=== PATIENT | female | born 1995 | race Caucasian/White ===

== ENCOUNTER 2016-11-07 18:13 | Emergency (ER) | payer OTHER, MEDICAID ==
--- NOTE | 2016-11-07 18:32 | EDM.PDOC ---
ED HPI ENT - General Chief Complaint: ENT Problem Stated Complaint: pt states at home with sore throat started yesterday feeling bad all day felt like couldnt breath due to sorethroat and swollen nodes came to ER states feels bad subj fever neg trouble swallowing holding salava or eating no medical problems Time Seen by Provider: 11/07/16 18:26 Source of Information: Reports: Patient History Limitations: Reports: No limitations - History of Present Illness Symptom Onset Date: 11/06/16 Symptom Onset Time: 18:00 Severity: moderate (7-8/10) Quality: Reports: Burning, Sharp Improves with: Reports: None Worsens with: Reports: None Associated Symptoms: Reports: shortness of breath, fever/chills. 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 [No Known Home Meds] 11/07/16 [History] Past Medical History - Past Health History Medical/Surgical History: Denies Medical/Surgical History HEENT History: Reports: None Cardiovascular History: Reports: None Respiratory History: Reports: None. Denies: Asthma, Bronchitis, recurrent Gastrointestinal History: Reports: None Genitourinary History: Reports: None PERSONAL COUNSELOR History: Reports: None Musculoskeletal History: Reports: None Neurological History: Reports: None Psychiatric History: Reports: None Endocrine/Metabolic History: Reports: None Immunologic History: Reports: None - Past Surgical History GI Surgical History: Reports: Cholecystectomy, Other (see below) (rhonda 3wks ago no complications since) Social & Family History - Family History Family Medical History: Noncontributory - Tobacco Use Smoking Status *Q: Never Smoker Years of Tobacco use: 2 Packs/Tins Daily: 1 - Recreational Drug Use Recreational Drug Use: Yes Drug Use in Last 12 Months: Yes Recreational Drug Type: Reports: Marijuana/Hashish ED ROS ENT - Review of Systems Review Of Systems: See Below Constitutional: Reports: fever, chills, weakness, fatigue. Denies: night sweats , diaphoresis HEENT: Reports: Throat pain, Throat swelling. Denies: Dental pain, Sinus problem Respiratory: Reports: shortness of breath, wheezing, cough Cardiovascular: Denies: Chest pain, Dyspnea on exertion, Lightheadedness, Palpitations GI/Abdominal: Reports: No symptoms : Reports: no symptoms Musculoskeletal: Reports: no symptoms Skin: Reports: no symptoms Neurological: Reports: no symptoms Psychiatric: Reports: No symptoms Hematologic/Lymphatic: Reports: no symptoms Immunologic: Reports: no symptoms ED EXAM, ENT - Physical Exam Exam: See Below Exam Limited By: No limitations General Appearance: alert, WD/WN, no apparent distress, anxious Eye Exam: bilateral eye: EOMI, PERRL Ears: normal external exam, normal canal, hearing grossly normal, normal TMs. No: mastoid tenderness Nose: normal inspection, normal mucousa, no blood. No: nasal discharge, nasal swelling Mouth/Throat: Normal inspection, Normal gums, Normal lips, Normal oropharynx, Normal teeth, Pharyngeal erythema, Tonsillar erythema, Tonsillar exudates, Tonsillar swelling, Other. No: Drooling (blat tonsils +1 creptic mild exudate inline uvula patent airway neg adenopathy ), Dry mucous membrane, Hoarse voice, Lip swelling, Muffled voice, Throat swelling, Tongue swelling, Trismus, Uvular deviation Head: atraumatic, normocephalic Neck: normal inspection, supple, non-tender, full range of motion. No: limited range of motion, lymphadenopathy (L) Respiratory/Chest: no respiratory distress, lungs clear, normal breath sounds, no accessory muscle use, chest non-tender. No: respiratory distress, decreased breath sounds Cardiovascular: regular rate, rhythm, no edema, no gallop, no JVD, no murmur, no rub GI/Abdominal: normal bowel sounds, soft, non tender, no organomegaly, no distention. No: distended, guarding, rebound, tender Back: full range of motion Extremities: normal inspection, normal range of motion, non-tender Neurological: alert, oriented, CN II-XII intact, normal cognition, normal gait, normal reflexes, no motor/sensory deficits Psychiatric: normal affect, normal mood Skin: Warm, Dry, Intact, Normal color, No rash Lymphatic: no adenopathy Course - Vital Signs Text/Narrative:: rapid strep neg will tx on centor criteria of 2 does not recommend emperic abx throat culture pending rechecked pt HR 92 sat 99% RA laughing with while lying on bed normal speech swallowing ok Last Recorded V/S: Last Vital Signs Temp 37.4 C 11/07/16 18:20 Pulse 120 H 11/07/16 18:20 Resp 16 11/07/16 18:20 BP 104/64 11/07/16 18:20 Pulse Ox 99 11/07/16 18:20 - Orders/Labs/Meds Orders: Active Orders 24 hr Category Date Time Status CULTURE STREP A CONFIRMATION [RM] Urgent Lab 11/07/16 18:30 Received CULTURE THROAT [RM] Stat Lab 11/07/16 18:54 Uncollected Labs: Laboratory Tests 11/07/16 Range/Units 18:30 POC Group A Strep Rpd Negative (NEGATIVE) Meds: Medications Discontinued Medications Generic Name Dose Route Start Last Admin Trade Name Meghan PRN Reason Stop Dose Admin Dexamethasone 8 mg 11/07/16 18:54 11/07/16 19:01 Dexamethasone IM 11/07/16 18:55 8 mg ONETIME ONE Administration Departure - Departure Time of Disposition: 19:05 Disposition: Home, Self-Care 01 Condition: good Clinical Impression: Pharyngitis Instructions: Pharyngitis Referrals: Virgen Murguia [facility] [Primary Care Provider] - Forms: ED Department Discharge Additional Instructions: return to the ER if anything gets worse or changes you cant breath ,swallow hold your spit saliva or throat swelling or feels like it getting tight or closing follow up with your primary provider in 24 -48 hrs pt and understand ok with TX and follow up - My Orders Last 24 Hours: My Active Orders 11/07/16 18:30 CULTURE STREP A CONFIRMATION [RM] Urgent 11/07/16 18:54 CULTURE THROAT [RM] Stat - Assessment/Plan Last 24 Hours: My Active Orders 11/07/16 18:30 CULTURE STREP A CONFIRMATION [RM] Urgent 11/07/16 18:54 CULTURE THROAT [RM] Stat
[2016-11-07 18:50] VITALS: BP 104/64
[2016-11-07] MEDS ORDERED: Dexamethasone 4 MG/ML SDV IM ONE (18:54)
[2016-11-07 18:55] LABS: STREP A CONTROL ACCEPTABLE (ACCEPTABLE); STREP A LOT 6164248; STREP A POC FOR ED NEGATIVE (NEGATIVE)
== END 2016-11-07 19:16 | disposition home or self-care (01) ==
LOC: VM.ED 18:13
DX: J02.9 Acute pharyngitis, unspecified (principal); Z88.6 Allergy status to analgesic agent
CPT/HCPCS: 87081; 87880; 96372; 99283; J1100

== ENCOUNTER 2017-07-11 20:12 | Emergency (ER) | payer OTHER, MEDICAID ==
[2017-07-11] MEDS ORDERED: Sodium Chloride 0.9% 10 ML Syringe FLUSH PRN (20:22)
[2017-07-11] MEDS ORDERED: Sodium Chloride 0.9% 1,000 ML IV ONE (20:22)
[2017-07-11] MEDS ORDERED: Ondansetron 4 MG/2 ML SDV IVPUSH ONE (20:23)
--- NOTE | 2017-07-11 20:38 | EDM.PDOC ---
ED HPI GENERAL MEDICAL PROBLEM - General Chief Complaint: Gastrointestinal Problem Stated Complaint: Nausea and Vomiting; SOB; Time Seen by Provider: 07/11/17 20:12 Source of Information: Reports: Patient, Family, RN, RN Notes Reviewed History Limitations: Reports: No Limitations - History of Present Illness INITIAL COMMENTS - FREE TEXT/NARRATIVE: Patient presents the emergency room at [facility] complaining of nausea vomiting and persistent coughing for the past couple of days. The patient states that she is 30 weeks . The patient states that she is being seen by a provider at [facility]. The patient states that she has vomited several times over the past couple of days. The patient states she is not sure if her coughing is causing the vomiting. The patient states she has not been able to keep any fluids down due to her vomiting. The patient denies any diarrhea. The patient denies any current cigarette smoking, however she did quit smoking about 4 years ago. The patient denies any chest pain. The patient states that she has some abdominal discomfort from the vomiting. The patient is not sure if she had any fevers or chills. The patient denies any focal neurological deficits. Otherwise no other concerns. Onset: Gradual Onset Date: 07/09/17 - Related Data Allergies Allergy/AdvReac Type Severity Reaction Status Date / Time codeine Allergy Hives Verified 11/07/16 18:46 Home Meds: Home Meds . [No Known Home Meds] 11/07/16 [History] Past Medical History HEENT History: Reports: None Cardiovascular History: Reports: None Respiratory History: Reports: None. Denies: Asthma, Bronchitis, Recurrent Gastrointestinal History: Reports: None Genitourinary History: Reports: None RECORDS OFFICER History: Reports: None Other OB/BYN History: vaginal delivery one week ago Musculoskeletal History: Reports: None Neurological History: Reports: None Psychiatric History: Reports: None Endocrine/Metabolic History: Reports: None Immunologic History: Reports: None - Past Surgical History GI Surgical History: Reports: Cholecystectomy, Other (See Below) Social & Family History - Family History Family Medical History: Noncontributory - Tobacco Use Smoking Status *Q: Former Smoker Years of Tobacco use: 2 Packs/Tins Daily: 1 Used Tobacco, but Quit: Yes Smoking Cessation Information Provided To Patient: Patient Refused Second Hand Smoke Exposure: Yes - Recreational Drug Use Recreational Drug Use: Yes Drug Use in Last 12 Months: Yes Recreational Drug Type: Reports: Marijuana/Hashish - Sexual History Sexual History: Reports: Sexually Active, Single Partner ED ROS GENERAL - Review of Systems Review Of Systems: See Below Constitutional: Reports: Weakness, Decreased Appetite. Denies: Fever, Chills HEENT: Reports: No Symptoms Respiratory: Reports: Shortness of Breath, Wheezing, Pleuritic Chest Pain, Cough. Denies: Sputum Cardiovascular: Denies: Chest Pain, Palpitations GI/Abdominal: Reports: Abdominal Pain, Decreased Appetite, Nausea, Vomiting. Denies: Diarrhea Skin: Reports: No Symptoms Neurological: Reports: No Symptoms. Denies: Headache, Numbness, Paresthesia, Tingling ED EXAM, GI/ABD - Physical Exam Exam: See Below Exam Limited By: No Limitations General Appearance: Alert, No Apparent Distress Neck: Supple Respiratory/Chest: No Respiratory Distress, Decreased Breath Sounds, Crackles, Rhonchi, Wheezing Cardiovascular: Normal Peripheral Pulses, Regular Rate, Rhythm GI/Abdominal Exam: Soft, Non-Tender, Abnormal Bowel Sounds (Hypoactive) Neurological: Alert, Oriented Skin Exam: Warm, Dry, Intact, Normal Color, No Rash Course - Orders/Labs/Meds Meds: Medications Discontinued Medications Generic Name Dose Route Start Last Admin Trade Name Freq PRN Reason Stop Dose Admin Sodium Chloride 1,000 mls @ 999 mls/hr 07/11/17 20:22 Normal Saline IV 07/11/17 21:22 ONETIME ONE Ondansetron HCl 4 mg 07/11/17 20:23 Zofran IVPUSH 07/11/17 20:24 ONETIME ONE Sodium Chloride 10 ml 07/11/17 20:22 Saline Flush FLUSH ASDIRECTED PRN Keep Vein Open Departure - Departure Time of Disposition: 20:25 Disposition: Eloped 07 Condition: Fair Clinical Impression: At risk for elopement, Wheezing, Exposure to influenza, Cough in adult - Discharge Information - Problem List Review Problem List Initiated/Reviewed/Updated: Yes - Assessment/Plan Plan: 20:12 Plan of care was discussed with the patient and she agreed. We will check a CBC and BMP along with an influenza screen. The patient will be rehydrated with IV fluids. I will also give the patient Zofran IV for the nausea. I would like to check a chest x-ray however given the it is not indicated. 20:25 I was notified by the nurse around 8:25 PM that the patient had eloped. It is unknown to this provider Y the patient eloped. According to the nurse the patient got upset her unknown reasons and stated that she would take herself to [place]. I did not have a chance to discuss with the patient the severity of my assessment findings. I am very concerned with this patient given her respiratory status, exposure to influenza, and high risk . I was unable to discuss this with the patient as she eloped without my knowledge.
[2017-07-11 23:49] VITALS: BP 114/64
== END 2017-07-11 20:25 | disposition left against medical advice (07) ==
LOC: VM.ED 20:12
DX: O99.89 Other specified diseases and conditions complicating pregnancy, childbirth and the puerperium (principal); R06.2 Wheezing; R05 Cough; R11.2 Nausea with vomiting, unspecified; Z20.828 Contact with and (suspected) exposure to other viral communicable diseases; Z88.5 Allergy status to narcotic agent; Z87.891 Personal history of nicotine dependence; Z90.49 Acquired absence of other specified parts of digestive tract; Z3A.30 30 weeks gestation of pregnancy
CPT/HCPCS: 99283

== ENCOUNTER 2018-12-23 12:16 | Emergency (ER) | payer MEDICAID, OTHER ==
--- NOTE | 2018-12-23 12:35 | EDM.PDOC ---
ED HPI GENERAL MEDICAL PROBLEM - General Chief Complaint: General Stated Complaint: SEVERE PAIN IN HEAD-TOOTHACHE Time Seen by Provider: 12/23/18 12:29 Source of Information: Reports: Patient History Limitations: Reports: No Limitations - History of Present Illness INITIAL COMMENTS - FREE TEXT/NARRATIVE: Patient arrives with complaints of left sided jaw pain, wisdom teeth pain to the left side. Complaints of abdominal cramping and cough as well. No sputum production. Cough started last night. Onset: Gradual Duration: Getting Worse Location: Reports: Face Worsens with: Reports: Eating Associated Symptoms: Reports: Cough - Related Data Allergies Allergy/AdvReac Type Severity Reaction Status Date / Time codeine Allergy Hives Verified 12/23/18 12:32 Home Meds: Home Meds . [No Known Home Meds] 12/23/18 [History] Past Medical History - Past Health History Medical/Surgical History: Denies Medical/Surgical History HEENT History: Reports: None Cardiovascular History: Reports: None Respiratory History: Reports: None. Denies: Asthma, Bronchitis, Recurrent Gastrointestinal History: Reports: None Genitourinary History: Reports: None PIECER History: Reports: None Other PIECER History: vaginal delivery one week ago Musculoskeletal History: Reports: None Neurological History: Reports: None Psychiatric History: Reports: None Endocrine/Metabolic History: Reports: None Immunologic History: Reports: None - Past Surgical History GI Surgical History: Reports: Cholecystectomy, Other (See Below) Social & Family History - Family History Family Medical History: Noncontributory - Sexual History Sexual History: Reports: Sexually Active, Single Partner ED ROS GENERAL - Review of Systems Review Of Systems: See Below Constitutional: Reports: Fever HEENT: Reports: Dental Pain Respiratory: Reports: Cough Cardiovascular: Reports: No Symptoms Endocrine: Reports: No Symptoms GI/Abdominal: Reports: Other (abdominal cramping, has menstrual cycle) : Reports: No Symptoms Musculoskeletal: Reports: No Symptoms Skin: Reports: No Symptoms Neurological: Reports: No Symptoms Psychiatric: Reports: No Symptoms Hematologic/Lymphatic: Reports: No Symptoms Immunologic: Reports: No Symptoms ED EXAM, GENERAL - Physical Exam Exam: See Below Free Text/Narrative:: Upon inspection and palpation, no left sided abscess identified to upper or lower jaw. Cracked upper back molar on left side. Exam Limited By: No Limitations General Appearance: Alert, WD/WN, Mild Distress Eye Exam: Bilateral Eye: EOMI, Normal Inspection, PERRL Ears: Normal TMs Ear Exam: Bilateral Ear: Auricle Normal, Canal Normal, TM normal Nose: Normal Inspection, Normal Mucosa, No Blood Throat/Mouth: Normal Inspection, Normal Lips, Normal Teeth, Normal Gums, Normal Oropharynx, Normal Voice, No Airway Compromise Head: Atraumatic, Normocephalic. No: Facial Swelling, Facial Tenderness, Sinus Tenderness Neck: Normal Inspection, Supple, Non-Tender, Full Range of Motion Respiratory/Chest: No Respiratory Distress, Lungs Clear, Normal Breath Sounds, No Accessory Muscle Use, Chest Non-Tender Cardiovascular: Normal Peripheral Pulses, Regular Rate, Rhythm, No Edema, No Gallop, No JVD, No Murmur, No Rub GI/Abdominal: Normal Bowel Sounds, Soft, No Organomegaly, No Distention, No Abnormal Bruit, No Mass, Tender Back Exam: No: CVA Tenderness (L), CVA Tenderness (R) Extremities: Normal Inspection, Normal Range of Motion, Non-Tender, Normal Capillary Refill, No Pedal Edema Neurological: Alert, Oriented, CN II-XII Intact, Normal Cognition, Normal Gait, Normal Reflexes, No Motor/Sensory Deficits Psychiatric: Normal Affect, Normal Mood Skin Exam: Warm, Dry, Intact, Normal Color, No Rash Lymphatic: No Adenopathy Departure - Departure Time of Disposition: 14:28 Disposition: Home, Self-Care 01 Condition: Good Clinical Impression: Influenza A, Tooth abscess - Discharge Information *PRESCRIPTION DRUG MONITORING PROGRAM REVIEWED*: Yes *COPY OF PRESCRIPTION DRUG MONITORING REPORT IN PATIENT JA: Yes Instructions: Amoxicillin; Clavulanic Acid tablets, Probiotics, Influenza, Adult, [id number] Forms: ED Department Discharge Additional Instructions: Plan 1. Follow up with your primary doctor and dentist. 2. Take the antibiotic augmentin twice daily for 7 days, as well as the tamiflu twiced daily for 5 days 3. Drink plenty of water to stay hydrated 4. Eat 1-2 yogurts daily or take a probiotic while on the antibiotic to prevent a bacterial infection of the intestine due to antibiotic use. 5. Please call with any questions or concerns. - Problem List & Annotations (1) Influenza A SNOMED Code(s): 190832025 Code(s): J10.1 - FLU DUE TO OTH IDENT INFLUENZA VIRUS W OTH RESP MANIFEST Status: Acute Priority: Medium Current Visit: Yes (2) Tooth abscess SNOMED Code(s): 760100861 Code(s): K04.7 - PERIAPICAL ABSCESS WITHOUT SINUS Status: Acute Priority : Low Current Visit: Yes - Problem List Review Problem List Initiated/Reviewed/Updated: Yes - Assessment/Plan Assessment:: abscess of wisdom teeth left side influenza A Plan: Plan 1. Follow up with your primary doctor and dentist. 2. Take the antibiotic augmentin twice daily for 7 days, as well as the tamiflu twiced daily for 5 days 3. Drink plenty of water to stay hydrated 4. Eat 1-2 yogurts daily or take a probiotic while on the antibiotic to prevent a bacterial infection of the intestine due to antibiotic use. 5. Please call with any questions or concerns.
[2018-12-23 12:38] VITALS: BP 148/89
[2018-12-23 13:13] LABS: CHLORIDE,CL 104 mmol/L (98-107); SODIUM,NA 142 mmol/L (136-145)
[2018-12-23 13:16] LABS: ANION GAP 15.2 mmol/L (10-20)
--- NOTE | 2018-12-23 13:16 | CR ---
[id number] RAD/RAD Chest PA or AP 1V EXAM: RAD Chest PA or AP 1V INDICATION: COUGH, FEVER. COMPARISON: None. DISCUSSION: Cardiomediastinal silhouette is normal in size and contour. No infiltrate, effusion, pneumothorax, or edema. Metallic artifact overlying both hemithoraces is likely external to the patient. IMPRESSION: No significant cardiopulmonary abnormality. Arnold Mccarty DO 12/23/18 1334 Thank you for allowing us to participate in the care of your patient.
[2018-12-23] MEDS: Amoxicillin/Clavulanate K 875-125 MG Tab PO ONE (13:37)
[2018-12-23] MEDS: Codeine/Promethazine 10-6.25 MG/5 ML Syrup 5 ML UD Cup PO ONE (13:38)
[2018-12-23] MEDS: Acetaminophen/HYDROcodone 325-10 MG Tab PO ONE (13:38)
[2018-12-23] MEDS: Ketorolac 30 MG/ML SDV IM ONE (13:39)
[2018-12-23] MEDS: Potassium Chloride 20 MEQ Tab.ER PO ONE (14:20)
== END 2018-12-23 14:40 | disposition home or self-care (01) ==
LOC: VM.ED 12:16
DX: J10.1 Influenza due to other identified influenza virus with other respiratory manifestations (principal); K04.7 Periapical abscess without sinus; Z88.5 Allergy status to narcotic agent; Z90.49 Acquired absence of other specified parts of digestive tract
CPT/HCPCS: 36415; 71045; 80053; 81001; 85025; 87804; 87804-59; 96372; 99283-GF; 99284-25; A9270-GY; J1885

== ENCOUNTER 2019-04-13 15:16 | Emergency (ER) | payer BC, OTHER ==
[2019-04-13] MEDS ORDERED: Sodium Chloride 0.9% 1,000 ML IV ONE (15:42)
--- NOTE | 2019-04-13 15:43 | EDM.PDOC ---
ED HPI GENERAL MEDICAL PROBLEM - General Stated Complaint: PT PASSED OUT AT STORE Time Seen by Provider: 04/13/19 15:37 Source of Information: Reports: Patient, EMS, Family History Limitations: Reports: No Limitations - History of Present Illness INITIAL COMMENTS - FREE TEXT/NARRATIVE: The patient has not established any doctor. She has been taking medications however she also admits to doing recreational marijuana. She was unable to give us a urine specimen to look for infection. She came in by EMS. We did give her some fluids she did feel like she was dehydrated. We also did lab work to make sure she wasn't anemic. The significant other was supportive. We did do heart tones and they were 150+. This is not her first . She did have a slight headache. No abrasion to the back of the head. I told her that a quantitative hCG will be drawn and that the results will be back on Sunday as far as establishing a baseline in case another value is needed. Onset: Sudden Duration: Improving Severity: Moderate Improves with: Reports: Eating Associated Symptoms: Reports: Headaches, Nausea/Vomiting, Weakness Posterior Head Pain Score (Numeric/FACES): 5 - Related Data Allergies Allergy/AdvReac Type Severity Reaction Status Date / Time codeine Allergy Hives Verified 04/13/19 16:09 Home Meds: Home Meds Pnv No.95/Ferrous Fum/Folic AC [ Caplet] 1 tab DAILY 04/13/19 [History] Past Medical History - Past Health History Medical/Surgical History: Denies Medical/Surgical History HEENT History: Reports: None Cardiovascular History: Reports: None Respiratory History: Reports: None. 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: Reports: None Other BOARD LINER OPERATOR History: vaginal delivery one week ago Musculoskeletal History: Reports: None Neurological History: Reports: None Psychiatric History: Reports: None Endocrine/Metabolic History: Reports: None Immunologic History: Reports: None - Past Surgical History GI Surgical History: Reports: Cholecystectomy, Other (See Below) Social & Family History - Family History Family Medical History: Noncontributory - Sexual History Sexual History: Reports: Sexually Active, Single Partner ED ROS GENERAL - Review of Systems Review Of Systems: ROS reveals no pertinent complaints other than HPI. - Physical Exam Exam: See Below Exam Limited By: No Limitations General Appearance: Alert, Mild Distress Head Exam: Atraumatic, Normocephalic, Other (Her headache is about the occipital area.) Respiratory/Chest: No Respiratory Distress, Lungs Clear, Normal Breath Sounds, No Accessory Muscle Use, Chest Non-Tender Cardiovascular: Normal Peripheral Pulses, Regular Rate, Rhythm, No Edema, No Gallop, No JVD, No Murmur, No Rub Extremities: Normal Inspection, Normal Range of Motion, Non-Tender, No Pedal Edema, Normal Capillary Refill Psychiatric: Normal Affect, Normal Mood Skin Exam: Warm, Dry Course - Vital Signs Last Recorded V/S: Last Vital Signs Temp 36.6 C 04/13/19 15:16 Pulse 76 04/13/19 15:16 Resp 16 04/13/19 15:16 BP 98/53 L 04/13/19 15:16 Pulse Ox 97 04/13/19 15:16 - Orders/Labs/Meds Orders: Active Orders 24 hr Category Date Time Status [facility] QUANTITATIVE [REF] Stat Lab 04/13/19 16:00 Received Labs: Laboratory Tests 04/13/19 04/13/19 Range/Units 16:00 16:00 WBC 9.2 (4.0-10.0) x10^3/uL RBC 3.97 L (4.00-5.50) x10^6/uL Hgb 12.7 (12.0-16.0) g/dL Hct 37.0 (33.0-47.0) % MCV 93.2 H (78.0-93.0) fL MCH 32.0 (26.0-32.0) pg MCHC 34.3 (32.0-36.0) g/dL RDW Coeff of Katelyn 12.3 (10.0-15.0) % Plt Count 122 L (130-400) x10^3/uL Neut % (Auto) 74.4 (50.0-80.0) % Lymph % (Auto) 12.5 L (25.0-50.0) % [place] % (Auto) 7.9 (2.0-11.0) % Eos % (Auto) 5.0 H (0.0-4.0) % Baso % (Auto) 0.2 (0.2-1.2) % Sodium 141 (136-145) mmol/L Potassium 3.8 (3.5-5.1) mmol/L Chloride 108 H (98-107) mmol/L Carbon Dioxide 26 (21-32) mmol/L Anion Gap 10.8 (10-20) mmol/L BUN 6 L (7-18) mg/dL Creatinine 0.7 (0.55-1.02) mg/dL Est Cr Clr Drug Dosing TNP Estimated GFR (MDRD) > 60 Glucose 91 (74-106) mg/dL Calcium 8.4 L (8.5-10.1) mg/dL Corrected Calcium 9.20 (8.5-10.1) mg/dL Total Bilirubin 0.3 (0.2-1.0) mg/dL AST 13 L (15-37) U/L ALT 13 L (14-59) U/L Alkaline Phosphatase 46 (46-116) U/L Total Protein 6.5 (6.4-8.2) g/dL Albumin 3.0 L (3.4-5.0) g/dL Globulin 3.5 Albumin/Globulin Ratio 0.86 Meds: Medications Discontinued Medications Generic Name Dose Route Start Last Admin Trade Name Freq PRN Reason Stop Dose Admin Sodium Chloride 1,000 mls @ 999 mls/hr 04/13/19 15:42 04/13/19 16:00 Normal Saline IV 04/13/19 16:42 999 mls/hr .BOLUS ONE Administration Departure - Departure Time of Disposition: 16:55 Disposition: Home, Self-Care 01 Condition: Good Clinical Impression: Syncope Qualifiers: Syncope type: unspecified Qualified Code(s): R55 - Syncope and collapse - Discharge Information *PRESCRIPTION DRUG MONITORING PROGRAM REVIEWED*: Not Applicable *COPY OF PRESCRIPTION DRUG MONITORING REPORT IN PATIENT JA: Not Applicable Instructions: Dehydration, Adult, [id number] Referrals: Liane Martinez NEGATIVE STRIPPER [Primary Care Provider] - Forms: ED Department Discharge Additional Instructions: Establish an OB doctor. Such as Dr. Tosin Albert with [facility] or Dr. Soria with [facility] are good options. Avoid smoking. Continue to take vitamins and avoid Aspirin. Take tylenol for pain. Labs were drawn and a copy will be sent to you when we get the HCG quant on Sunday. - My Orders Last 24 Hours: My Active Orders 04/13/19 16:00 [facility] QUANTITATIVE [REF] Stat - Assessment/Plan Last 24 Hours: My Active Orders 04/13/19 16:00 [facility] QUANTITATIVE [REF] Stat
[2019-04-13 16:23] VITALS: BP 98/53
[2019-04-13 16:24] LABS: ANION GAP 10.8 mmol/L (10-20); CHLORIDE,CL 108 mmol/L (98-107); SODIUM,NA 141 mmol/L (136-145)
== END 2019-04-13 17:05 | disposition home or self-care (01) ==
LOC: VM.ED 15:16
DX: O99.89 Other specified diseases and conditions complicating pregnancy, childbirth and the puerperium (principal); R55 Syncope and collapse; Z79.899 Other long term (current) drug therapy; Z88.5 Allergy status to narcotic agent; Z3A.16 16 weeks gestation of pregnancy
CPT/HCPCS: 80053; 84702; 85025; 96360; 99283-GF; 99284-25; J7030

== ENCOUNTER 2020-04-11 23:07 | Emergency (ER) | payer MEDICAID ==
[2020-04-11] MEDS ORDERED: Ondansetron 4 MG/2 ML SDV IVPUSH ONE (23:14)
[2020-04-11] MEDS ORDERED: Sodium Chloride 0.9% 10 ML Syringe FLUSH PRN (23:14)
[2020-04-11] MEDS ORDERED: HYDROmorphone 1 MG/ML Syringe IVPUSH ONE (23:15)
[2020-04-11 23:16] VITALS: BP 108/62; PULSE 96
[2020-04-11] MEDS ORDERED: Prochlorperazine 10 MG/2 ML SDV IV ONE (23:17)
[2020-04-11 23:58] LABS: SODIUM,NA 138 mmol/L (136-145)
[2020-04-12 00:02] LABS: CHLORIDE,CL 101 mmol/L (98-107)
[2020-04-12] MEDS ORDERED: Take Home: Cyclobenzaprine 10 MG Tab, 4 Tab Pack PO ONE (00:07)
--- NOTE | 2020-04-12 01:02 | EDM.PDOC ---
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 states that she began experiencing intense vaginal/rectal pain tonight after having intercourse. Pt. states that she was on top straddling her partner. She denies any trauma and states that the pain started abruptly when she got up to use the bathroom. Pt. states that the pain has been present for approx. 30 min prior to arrival to ER. Initially she states that the pain involved both the vagina and the anus. She states that she has been experiencing intermittent bright rectal bleeding for years, but states that she has not been worked up for this. Neither she of her partner have piercings. Denies any injury; again pt. relates that the pain started after they finished coitus. She states that the pain was so severe it caused her to become lightheaded and nauseated. Onset Date: 04/11/20 Location: Reports: Pelvis Quality: Reports: Sharp, Stabbing, Throbbing Severity: Severe - Related Data Allergies Allergy/AdvReac Type Severity Reaction Status Date / Time codeine Allergy Hives Verified 04/11/20 23:13 Home Meds: Home Meds . 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 History: vaginal delivery one week ago Musculoskeletal History: Reports: None Neurological History: Reports: None Psychiatric History: Reports: None Endocrine/Metabolic History: Reports: None Immunologic History: Reports: None - Past Surgical History GI Surgical History: Reports: Cholecystectomy, Other (See Below) Social & Family History - Family History Family Medical History: Noncontributory - Tobacco Use Smoking Status *Q: Current Some Day Smoker Years of Tobacco use: 10 Packs/Tins Daily: 0.1 - Sexual History Sexual History: Reports: Sexually Active, Single Partner ED ROS GENERAL - Review of Systems Review Of Systems: See Below Constitutional: Reports: No Symptoms. Denies: Fever, Chills HEENT: Reports: No Symptoms Respiratory: Reports: No Symptoms Cardiovascular: Reports: No Symptoms Endocrine: Reports: No Symptoms GI/Abdominal: Reports: Hematochezia (in past) : Reports: Pain Musculoskeletal: Reports: No Symptoms Skin: Reports: No Symptoms Neurological: Reports: No Symptoms Psychiatric: Reports: No Symptoms Hematologic/Lymphatic: Reports: No Symptoms Immunologic: Reports: No Symptoms ED EXAM, GENERAL - Physical Exam Exam: See Below Exam Limited By: No Limitations General Appearance: Alert, WD/WN, No Apparent Distress Respiratory/Chest: No Respiratory Distress, Lungs Clear, Normal Breath Sounds, No Accessory Muscle Use, Chest Non-Tender Cardiovascular: Normal Peripheral Pulses, Regular Rate, Rhythm, No Edema, No Gallop, No JVD, No Murmur, No Rub GI/Abdominal: Soft, Non-Tender, No Organomegaly, No Distention, No Mass (Female) Exam: Normal External Exam, Normal Speculum Exam, Normal Bimanual Exam, Other (No vaginal tears or trauma noted. No perineal bruising. Cervix is closed. Evidence of recent coitus noted.) Rectal (Female) Exam: Hemorrhoids, Other (small external hemorrhoid noted at approx. 12 o'clock position. Rectal tone is very tense. Patient has increased discomfort with palpation of the area. No obvious trauma noted. ) Course - Vital Signs Last Recorded V/S: Last Vital Signs Temp 36.4 C 04/11/20 23:14 Pulse 96 04/11/20 23:14 Resp 24 H 04/11/20 23:14 BP 108/62 04/11/20 23:14 Pulse Ox 96 04/11/20 23:14 - Orders/Labs/Meds Orders: Active Orders 24 hr Category Date Time Status Peripheral IV Insertion Adult [OM.PC] Routine Oth 04/11/20 23:14 Ordered Labs: Laboratory Tests 04/11/20 04/11/20 04/11/20 Range/Units 23:34 23:34 23:34 WBC 8.9 (4.0-10.0) x10^3/uL RBC 4.61 (4.00-5.50) x10^6/uL Hgb 14.0 (12.0-16.0) g/dL Hct 39.4 (33.0-47.0) % MCV 85.5 D (78.0-93.0) fL MCH 30.4 (26.0-32.0) pg MCHC 35.5 (32.0-36.0) g/dL RDW Coeff of Katelyn 13.0 (10.0-15.0) % Plt Count 135 (130-400) x10^3/uL Neut % (Auto) 56.8 (50.0-80.0) % Lymph % (Auto) 25.8 (25.0-50.0) % [place] % (Auto) 12.9 H (2.0-11.0) % Eos % (Auto) 4.3 H (0.0-4.0) % Baso % (Auto) 0.2 (0.2-1.2) % PT 10.7 (9.5-12.3) SEC INR 1.0 L (2.0-3.5) Sodium 138 (136-145) mmol/L Potassium 3.0 L (3.5-5.1) mmol/L Chloride 101 (98-107) mmol/L Carbon Dioxide 22 (21-32) mmol/L Anion Gap 18.0 (10-20) mmol/L BUN 15 (7-18) mg/dL Creatinine 1.0 (0.55-1.02) mg/dL Est Cr Clr Drug Dosing TNP Estimated GFR (MDRD) > 60 Glucose 123 H (74-106) mg/dL Calcium 9.0 (8.5-10.1) mg/dL Corrected Calcium 8.84 (8.5-10.1) mg/dL Magnesium 1.8 (1.8-2.4) mg/dL Total Bilirubin 0.9 (0.2-1.0) mg/dL AST 29 (15-37) U/L ALT 41 (14-59) U/L Alkaline Phosphatase 62 (46-116) U/L C-Reactive Protein 0.9 (<=0.9) mg/dL Total Protein 7.7 (6.4-8.2) g/dL Albumin 4.2 (3.4-5.0) g/dL Globulin 3.5 Albumin/Globulin Ratio 1.20 Meds: Medications Discontinued Medications Generic Name Dose Route Start Last Admin Trade Name Freq PRN Reason Stop Dose Admin Cyclobenzaprine HCl 1 packet 04/12/20 00:07 04/12/20 00:10 Take Home: Cyclobenzaprine 10 Mg, 4 Tab Pack PO 04/12/20 00:08 1 packet ONETIME ONE Administration Hydromorphone HCl 1 mg 04/11/20 23:15 04/11/20 23:30 Dilaudid IVPUSH 04/11/20 23:16 1 mg ONETIME ONE Administration Ondansetron HCl 4 mg 04/11/20 23:14 Zofran IVPUSH 04/11/20 23:15 ONETIME ONE Prochlorperazine Edisylate 5 mg 04/11/20 23:17 04/11/20 23:32 Compazine IV 04/11/20 23:18 5 mg ONETIME ONE Administration Sodium Chloride 10 ml 04/11/20 23:14 Saline Flush FLUSH ASDIRECTED PRN Keep Vein Open Departure - Departure Time of Disposition: 12:30 Disposition: Home, Self-Care 01 Clinical Impression: Painful spasm of anus - Discharge Information Instructions: Proctalgia Fugax Referrals: PCP,Unobtain [Primary Care Provider] - Forms: ED Department Discharge Additional Instructions: Other possible causes for the discomfort is levator ani syndrome, which is muscle spasm that can be brought on by intercourse. This is self limiting, and can be treated with muscle relaxants. I would like you to establish care in the clinic and get set up for a colonoscopy, given your history of rectal bleeding. Flexeril 10mg 1 tab 3 times per day as needed for continued pain/spasm. Sepsis Event Note (ED) - Evaluation Sepsis Screening Result: No Definite Risk - Focused Exam Vital Signs: Vital Signs Temp Pulse Resp BP Pulse Ox 04/11/20 23:14 36.4 C 96 24 H 108/62 96 - Problem List Review Problem List Initiated/Reviewed/Updated: Yes - My Orders Last 24 Hours: My Active Orders 04/11/20 23:14 Peripheral IV Insertion Adult [OM.PC] Routine - Assessment/Plan Last 24 Hours: My Active Orders 04/11/20 23:14 Peripheral IV Insertion Adult [OM.PC] Routine Plan: Pt. was extremely uncomfortable and crying on arrival to ER. IV access was established. She was given 1 mg dilaudid IV and 5 mg compazine IV. She reported significant improvement in discomfort. Likely cause of discomfort is Levator ani syndrome, as the symptoms lasted longer than a few minutes as would be expected in proctalgia fugax. Pt. was started on a short course of flexeril to take for continued spasm/discomfort. Advised warm baths as needed in addition to the flexeril.
== END 2020-04-12 00:20 | disposition home or self-care (01) ==
LOC: VM.ED 23:07
DX: K59.4 Anal spasm (principal); K64.4 Residual hemorrhoidal skin tags; F17.210 Nicotine dependence, cigarettes, uncomplicated; Z88.5 Allergy status to narcotic agent
CPT/HCPCS: 36415; 80053; 83735; 85025; 85610; 86140; 96374; 96375; 99284-25; A9270-GY; J0780; J1170

== ENCOUNTER 2020-06-16 14:30 | Emergency (ER) | payer MEDICAID ==
[2020-06-16] MEDS ORDERED: Ketorolac 30 MG/ML SDV IVPUSH ONE (14:47)
[2020-06-16] MEDS ORDERED: diphenhydrAMINE 50 MG/ML SDV IVPUSH ONE (14:47)
[2020-06-16] MEDS ORDERED: Sodium Chloride 0.9% 10 ML Syringe FLUSH PRN (14:47)
[2020-06-16] MEDS ORDERED: cefTRIAXone 2 GM Vial IVPUSH ONE (14:47)
[2020-06-16] MEDS ORDERED: Lactated Ringers 1,000 ML IV ONE ×2 (14:47→15:52)
[2020-06-16 15:31] LABS: ANION GAP 12.3 mmol/L (10-20); CHLORIDE,CL 97 mmol/L (98-107); SODIUM,NA 135 mmol/L (136-145)
[2020-06-16] MEDS ORDERED: Take Home: Acetaminophen/HYDROcodone 325-5 MG, 5 Tab Pack PO ONE (16:24)
[2020-06-16] MEDS ORDERED: Take Home: Ondansetron 4 MG Tab.DIS, 2 Tab Pack PO ONE (16:24)
--- NOTE | 2020-06-16 16:26 | EDM.PDOC ---
ED HPI GENERAL MEDICAL PROBLEM - General Chief Complaint: Genitourinary Problem Time Seen by Provider: 06/16/20 14:30 Source of Information: Reports: Patient History Limitations: Reports: No Limitations - History of Present Illness INITIAL COMMENTS - FREE TEXT/NARRATIVE: Patient comes emergency department today from the clinic for further evaluation of flank pain and dysuria. For about the last 7 to 10 days the patient has had urinary frequency and dysuria. For the past 2 days she has developed right flank pain nausea generalized malaise and fatigue fever chills. She went to the clinic where they were concerned about her infection so they sent her to the ER for further evaluation. She has no cough congestion shortness of breath. No loss of taste or smell. No diarrhea. No other COVID symptoms. No other COVID exposure. She has not tried anything for her pain or fever prior to arrival. Right Flank Pain Score (Numeric/FACES): 7 - Related Data Allergies Allergy/AdvReac Type Severity Reaction Status Date / Time codeine Allergy Hives Verified 06/16/20 14:42 Home Meds: Home Meds Ondansetron [Ondansetron ODT] 4 mg PO Q6H PRN #12 tab.rapdis 06/16/20 [Rx] cephALEXin [Cephalexin] 500 mg PO QID #28 tablet 06/16/20 [Rx] Past Medical History - Past Health History Medical/Surgical History: Denies Medical/Surgical History HEENT History: Reports: None Cardiovascular History: Reports: None Respiratory History: Reports: None Gastrointestinal History: Reports: None Genitourinary History: Reports: None 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 Other COMMERCIAL GLAZIER History: vaginal delivery one week ago Musculoskeletal History: Reports: None Neurological History: Reports: None Psychiatric History: Reports: None Endocrine/Metabolic History: Reports: None Immunologic History: Reports: None - Past Surgical History GI Surgical History: Reports: Cholecystectomy, Other (See Below) Social & Family History - Family History Family Medical History: Noncontributory - Tobacco Use Smoking Status *Q: Current Every Day Smoker Years of Tobacco use: 1 Packs/Tins Daily: 1 - Recreational Drug Use Recreational Drug Use: Yes Recreational Drug Type: Reports: Marijuana/Hashish Recreational Drug Use Frequency: Weekly - Sexual History Sexual History: Reports: Sexually Active, Single Partner ED ROS GENERAL - Review of Systems Review Of Systems: Comprehensive ROS is negative, except as noted in HPI. ED EXAM, GI/ABD - Physical Exam Exam: See Below Text/Narrative:: Appears in mild distress as she is constantly moving about the bed complaining of her right flank pain. Exam Limited By: No Limitations General Appearance: Alert, WD/WN, Mild Distress Eyes: Bilateral: EOMI Ears: Normal External Exam, Normal TMs Nose: Normal Inspection Throat/Mouth: Normal Inspection, Normal Lips Head: Atraumatic, Normocephalic Neck: Normal Inspection, Supple, Non-Tender Respiratory/Chest: No Respiratory Distress, Lungs Clear, Normal Breath Sounds, No Accessory Muscle Use Cardiovascular: Normal Peripheral Pulses, Regular Rate, Rhythm GI/Abdominal Exam: Normal Bowel Sounds, Soft, Non-Tender (Female) Exam: Deferred Rectal (Female) Exam: Deferred Back Exam: CVA Tenderness (R). No: CVA Tenderness (L), Paraspinal Tenderness, Vertebral Tenderness Extremities: Normal Inspection, Normal Range of Motion Neurological: Alert, Oriented, Normal Cognition, Normal Gait, No Motor/Sensory Deficits Skin Exam: Warm, Dry, Intact, Normal Color Course - Vital Signs Last Recorded V/S: Last Vital Signs Temp 98.7 F 06/16/20 17:30 Pulse 90 06/16/20 17:30 Resp 14 06/16/20 17:30 BP 116/68 06/16/20 17:30 Pulse Ox 98 06/16/20 17:30 - Orders/Labs/Meds Orders: Active Orders 24 hr Category Date Time Status CULTURE BLOOD [BC] Stat Lab 06/16/20 14:56 Received CULTURE BLOOD [BC] Stat Lab 06/16/20 14:58 Received CULTURE URINE [RM] Stat Lab 06/16/20 17:15 Received Blood Culture x2 Reflex Set [OM.PC] Stat Oth 06/16/20 14:47 Ordered Peripheral IV Insertion Adult [OM.PC] Stat Oth 06/16/20 14:47 Ordered Labs: Laboratory Tests 06/16/20 06/16/20 06/16/20 Range/Units 14:56 14:56 14:56 WBC 17.0 H (4.0-10.0) x10^3/uL RBC 4.52 (4.00-5.50) x10^6/uL Hgb 14.3 (12.0-16.0) g/dL Hct 41.1 (33.0-47.0) % MCV 90.9 D (78.0-93.0) fL MCH 31.6 (26.0-32.0) pg MCHC 34.8 (32.0-36.0) g/dL RDW Coeff of Katelyn 13.5 (10.0-15.0) % Plt Count 115 L (130-400) x10^3/uL Neut % (Auto) 85.8 H (50.0-80.0) % Lymph % (Auto) 3.6 L (25.0-50.0) % [place] % (Auto) 10.3 (2.0-11.0) % Eos % (Auto) 0.1 (0.0-4.0) % Baso % (Auto) 0.2 (0.2-1.2) % Sodium 135 L (136-145) mmol/L Potassium 3.3 L (3.5-5.1) mmol/L Chloride 97 L (98-107) mmol/L Carbon Dioxide 29 (21-32) mmol/L Anion Gap 12.3 (10-20) mmol/L BUN 9 (7-18) mg/dL Creatinine 1.0 (0.55-1.02) mg/dL Est Cr Clr Drug Dosing TNP Estimated GFR (MDRD) > 60 Glucose 94 (74-106) mg/dL Lactic Acid 0.9 (0.4-2.0) mmol/L Calcium 8.7 (8.5-10.1) mg/dL Corrected Calcium 8.94 (8.5-10.1) mg/dL Total Bilirubin 1.6 H (0.2-1.0) mg/dL AST 13 L (15-37) U/L ALT 14 (14-59) U/L Alkaline Phosphatase 60 (46-116) U/L C-Reactive Protein 57.5 H (<=0.9) mg/dL Total Protein 8.0 (6.4-8.2) g/dL Albumin 3.7 (3.4-5.0) g/dL Globulin 4.3 Albumin/Globulin Ratio 0.86 Urine Color (YELLOW) Urine Appearance (CLEAR) Urine pH (5.0-8.0) Ur Specific [place] Urine Protein (NEGATIVE) mg/dL Urine Glucose (UA) (NEGATIVE) mg/dL Urine Ketones (NEGATIVE) mg/dL Urine Occult Blood (NEGATIVE) Urine Nitrite (NEGATIVE) Urine Bilirubin (NEGATIVE) Urine Urobilinogen (0.2) EU/dL Ur Leukocyte Esterase (NEGATIVE) Urine RBC (NOT SEEN) /HPF Urine WBC (NOT SEEN) /HPF Ur Squamous Epith Cells (NEGATIVE) /HPF Urine Bacteria (NEGATIVE) /HPF Urine Mucus (NEGATIVE) /LPF Urine HCG, Qual (NEGATIVE) 06/16/20 06/16/20 Range/Units 17:15 17:15 WBC (4.0-10.0) x10^3/uL RBC (4.00-5.50) x10^6/uL Hgb (12.0-16.0) g/dL Hct (33.0-47.0) % MCV (78.0-93.0) fL MCH (26.0-32.0) pg MCHC (32.0-36.0) g/dL RDW Coeff of Katelyn (10.0-15.0) % Plt Count (130-400) x10^3/uL Neut % (Auto) (50.0-80.0) % Lymph % (Auto) (25.0-50.0) % [place] % (Auto) (2.0-11.0) % Eos % (Auto) (0.0-4.0) % Baso % (Auto) (0.2-1.2) % Sodium (136-145) mmol/L Potassium (3.5-5.1) mmol/L Chloride (98-107) mmol/L Carbon Dioxide (21-32) mmol/L Anion Gap (10-20) mmol/L BUN (7-18) mg/dL Creatinine (0.55-1.02) mg/dL Est Cr Clr Drug Dosing Estimated GFR (MDRD) Glucose (74-106) mg/dL Lactic Acid (0.4-2.0) mmol/L Calcium (8.5-10.1) mg/dL Corrected Calcium (8.5-10.1) mg/dL Total Bilirubin (0.2-1.0) mg/dL AST (15-37) U/L ALT (14-59) U/L Alkaline Phosphatase (46-116) U/L C-Reactive Protein (<=0.9) mg/dL Total Protein (6.4-8.2) g/dL Albumin (3.4-5.0) g/dL Globulin Albumin/Globulin Ratio Urine Color Light yellow (YELLOW) Urine Appearance Cloudy H (CLEAR) Urine pH 6.0 (5.0-8.0) Ur Specific [place] 1.010 Urine Protein 100 H (NEGATIVE) mg/dL Urine Glucose (UA) Negative (NEGATIVE) mg/dL Urine Ketones Trace H (NEGATIVE) mg/dL Urine Occult Blood Moderate H (NEGATIVE) Urine Nitrite Positive H (NEGATIVE) Urine Bilirubin Negative (NEGATIVE) Urine Urobilinogen 0.2 (0.2) EU/dL Ur Leukocyte Esterase Large H (NEGATIVE) Urine RBC 20-30 H (NOT SEEN) /HPF Urine WBC >100 H (NOT SEEN) /HPF Ur Squamous Epith Cells Occasional H (NEGATIVE) /HPF Urine Bacteria Few H (NEGATIVE) /HPF Urine Mucus Occasional H (NEGATIVE) /LPF Urine HCG, Qual Negative (NEGATIVE) Meds: Medications Discontinued Medications Generic Name Dose Route Start Last Admin Trade Name Meghan PRN Reason Stop Dose Admin Hydrocodone Bitart/Acetaminophen 1 packet 06/16/20 16:24 06/16/20 17:27 Take Home: Acetam/Hydrocodon 325-5 Mg, 5 Pack PO 06/16/20 16:25 1 packet ONETIME ONE Administration Ceftriaxone Sodium 2 gm 06/16/20 14:47 06/16/20 15:01 Rocephin IVPUSH 06/16/20 14:48 2 gm STAT ONE Administration Diphenhydramine HCl 25 mg 06/16/20 14:47 06/16/20 15:05 Benadryl IVPUSH 06/16/20 14:48 25 mg ONETIME ONE Administration Lactated Ringer's 1,000 mls @ 999 mls/hr 06/16/20 14:47 06/16/20 14:58 Ringers, Lactated IV 06/16/20 15:47 999 mls/hr ONETIME ONE Administration Lactated Ringer's 1,000 mls @ 999 mls/hr 06/16/20 15:52 06/16/20 16:26 Ringers, Lactated IV 06/16/20 16:52 999 mls/hr ONETIME ONE Administration Ketorolac Tromethamine 30 mg 06/16/20 14:47 06/16/20 15:07 Toradol IVPUSH 06/16/20 14:48 30 mg ONETIME ONE Administration Ondansetron HCl 1 packet 06/16/20 16:24 06/16/20 17:27 Take Home: Ondansetron Odt 4 Mg, 2 Tab Pack PO 06/16/20 16:25 1 packet ONETIME ONE Administration Sodium Chloride 10 ml 06/16/20 14:47 Saline Flush FLUSH ASDIRECTED PRN Keep Vein Open - Re-Assessments/Exams Free Text/Narrative Re-Assessment/Exam: 06/16/20 16:28 Reviewing her lab work from the clinic today at [place] she had ketones large amount of blood protein positive nitrites and moderate leukocyte esterase. Greater than 50 WBCs. Unsure if her urine culture was obtained. IV LR 1 L wide open. Benadryl for nausea and Toradol for pain. Blood cultures x2 drawn. Pending. Ceftriaxone 2 g IV push. She has a quite impressive 17,000 white count and a very elevated CRP at 57. After the above therapy she does feel quite a bit better although she is very diaphoretic and hot. Her pain is much improved. Her nausea is resolved. She has been unable to void so far and we will give her a second liter of fluid. I did offer her observation with her impressive WBC and CRP and she declined. After the second liter of fluids she was able to void. A urine culture is pen ding. She feels much better after the above therapy. SHe was able to drink fluids and keep them down in the ED. We will discharge home with Zofran Cephalexin and [place]. If she is unable to keep fluids and anti-biotics down or unable to control her fever she will return for admission and therapy. She is understanding of the discharge instructions and her questions answered. Departure - Departure Time of Disposition: 16:20 Disposition: Home, Self-Care 01 Clinical Impression: Pyelonephritis - Discharge Information Prescriptions: cephALEXin [Cephalexin] 500 mg PO QID #28 tablet Ondansetron [Ondansetron ODT] 4 mg PO Q6H PRN #12 tab.rapdis PRN Reason: Nausea/Vomiting Instructions: Pyelonephritis, Adult, [id number], Antibiotic Medicine, Adult, [id number], Pain Medicine Instructions, [id number] Referrals: Shanon Ahmadi PA-C [Primary Care Provider] - Forms: ED Department Discharge Additional Instructions: Home rest over the next few days. Lots of oral fluids especially Electrolyte containing materials such as Gatorade and or Powerade. Zofran, 1 tablet every 6 hrs as needed for nausea. RX sent to [facility]. Cephalexin, 1 capsule twice daily for the next 7 days. No matter what finish the medication. RX to [facility] you can start this morning. Tylenol and or Ibuprofen as needed for pain fever discomfort. If pain not controlled with above. [place], 1 tablet every 6 hrs with food as needed for pain. Caution sedation. Dispensed from the ED. Do not take this medication if you are taking Tylenol as well as this has Tylenol in it. Return to the ED if new or worsening symptoms. ESPECIALLY if you are unable to keep your anti-biotics down from vomiting. Follow up with PCP in the next 4-6 days if not improving sooner if worse. Sepsis Event Note (ED) - Evaluation Sepsis Screening Result: No Definite Risk - Focused Exam Vital Signs: Vital Signs Temp Pulse Resp BP Pulse Ox 06/16/20 17:30 98.7 F 90 14 116/68 98 06/16/20 14:35 99.2 F 102 H 18 119/71 99 - My Orders Last 24 Hours: My Active Orders 06/16/20 14:47 Blood Culture x2 Reflex Set [OM.PC] Stat Peripheral IV Insertion Adult [OM.PC] Stat 06/16/20 14:56 CULTURE BLOOD [BC] Stat 06/16/20 14:58 CULTURE BLOOD [BC] Stat 06/16/20 17:15 CULTURE URINE [RM] Stat - Assessment/Plan Last 24 Hours: My Active Orders 06/16/20 14:47 Blood Culture x2 Reflex Set [OM.PC] Stat Peripheral IV Insertion Adult [OM.PC] Stat 06/16/20 14:56 CULTURE BLOOD [BC] Stat 06/16/20 14:58 CULTURE BLOOD [BC] Stat 06/16/20 17:15 CULTURE URINE [RM] Stat
[2020-06-16 18:24] VITALS: BP 116/68; PULSE 90
== END 2020-06-16 17:47 | disposition home or self-care (01) ==
LOC: VM.ED 14:30
DX: N12 Tubulo-interstitial nephritis, not specified as acute or chronic (principal); F17.210 Nicotine dependence, cigarettes, uncomplicated; Z88.5 Allergy status to narcotic agent; Z90.49 Acquired absence of other specified parts of digestive tract
CPT/HCPCS: 36415; 80053; 81001; 81025; 83605; 85025; 86140; 87040; 87086; 96374; 96375; 99284-25; A9270-GY; J0696; J1200; J1885; J7120

== ENCOUNTER 2020-06-16 20:35 | Inpatient (IN) | payer MEDICAID ==
[2020-06-16] MEDS ORDERED: HYDROmorphone 1 MG/ML Syringe IVPUSH PRN (21:05)
[2020-06-16] MEDS ORDERED: Ketorolac 30 MG/ML SDV IM PRN (21:05)
[2020-06-16] MEDS ORDERED: Promethazine 12.5 MG in Sodium Chloride 0.9% 100 ML IV PRN (21:05)
[2020-06-16] MEDS ORDERED: Ondansetron 4 MG/2 ML SDV IV PRN (21:05)
[2020-06-16] MEDS ORDERED: Acetaminophen 325 MG Tab PO PRN (21:05)
--- NOTE | 2020-06-16 21:20 | PCM.HP.2 ---
H&P History of Present Illness - General Date of Service: 06/16/20 Admit Problem/Dx: Admission Diagnosis/Problem Admission Diagnosis/Problem Pyelonephritis Source of Information: Patient History Limitations: Reports: No Limitations - History of Present Illness Initial Comments - Free Text/Narative: Patient is a direct admit from home with concerns of worsening pyelonephritis. This patient was seen in the emergency department earlier today with complaints of dysuria and urinary frequency for about the past 7 days. For the past 2 days she has developed pain in her right flank fever chills generalized malaise and fatigue nausea without vomiting. She was initially seen in the clinic and sent to the emergency department for further evaluation. She was diagnosed with acute pyelonephritis with a quite elevated WBC of 17,000 and a CRP of almost 60. She had blood cultures x2 and a urinary culture pending. She was given 2 L of LR in the emergency department as well as ceftriaxone 2 g IV push. She was given pain and nausea medication and she felt quite a bit better. With the concerns of the CRP and the white count I did offer admission at that time but she did not feel it was warranted and wanted to go home. She was able to drink fluids in the ED and tolerate them. I discussed at length with her the importance if she is unable to keep fluids down or her antibiotic she is to return. Returns a couple of hours after being discharged home. She has vomited multiple times at home. She has recurrence of her fever. The rest of her symptoms of malaise fatigue continue. As she clearly has failed outpatient management for acute pyelonephritis we will admit her into the hospital under acute care services for further care and management. - Related Data Allergies/Adverse Reactions: Allergies Allergy/AdvReac Type Severity Reaction Status Date / Time codeine Allergy Hives Verified 06/16/20 14:42 Home Medications: Home Meds Ondansetron [Ondansetron ODT] 4 mg PO Q6H PRN #12 tab.rapdis 06/16/20 [Rx] cephALEXin [Cephalexin] 500 mg PO QID #28 tablet 06/16/20 [Rx] Past Medical History - Past Health History Medical/Surgical History: Denies Medical/Surgical History HEENT History: Reports: None Cardiovascular History: Reports: None Respiratory History: Reports: None Gastrointestinal History: Reports: None Genitourinary History: Reports: None PERSONAL INJURY LITIGATION PARALEGAL History: Reports: None Other OB/BYN History: vaginal delivery one week ago Musculoskeletal History: Reports: None Neurological History: Reports: None Psychiatric History: Reports: None Endocrine/Metabolic History: Reports: None Immunologic History: Reports: None - Past Surgical History GI Surgical History: Reports: Cholecystectomy, Other (See Below) Social & Family History - Family History Family Medical History: Noncontributory - Sexual History Sexual History: Reports: Sexually Active, Single Partner H&P Review of Systems - Review of Systems: Review Of Systems: Comprehensive ROS is negative, except as noted in HPI. Exam - Exam Exam: See Below - Exam General: Alert, Oriented HEENT: Conjunctiva Clear, EOMI Neck: Supple, Trachea Midline Lungs: Clear to Auscultation, Normal Respiratory Effort Cardiovascular: Regular Rate, Regular Rhythm, Tachycardia GI/Abdominal Exam: Normal Bowel Sounds, Soft, Non-Tender (Female) Exam: Deferred Rectal (Female) Exam: Deferred Back Exam: CVA Tenderness (R). No: CVA Tenderness (L), Paraspinal Tenderness, Vertebral Tenderness Extremities: Normal Inspection, Normal Range of Motion, No Pedal Edema, Normal Capillary Refill Peripheral Pulses: 2+: Radial (L), Radial (R), Posterior Tibial (L), Posterior Tibial (R), Dorsalis Pedis (L), Dorsalis Pedis (R) Skin: Intact, Cool, Moist, Other (pallor) Neurological: Cranial Nerves Intact Neuro Extensive - Mental Status: Alert, Oriented x3 Neuro Extensive - Motor, Sensory, Reflexes: CN II-XII Intact Psychiatric: Alert, Normal Affect - Problem List (1) Pyelonephritis, acute SNOMED Code(s): 93260558 ICD Code: N10 - ACUTE PYELONEPHRITIS Status: Acute Current Visit: Yes Problem List Initiated/Reviewed/Updated: Yes Orders Last 24hrs: Active Orders 24 hr Category Date Time Status Admission Status [Patient Status] [ADT] Routine ADT 06/16/20 20:48 Active Antiembolic Devices [RC] PER UNIT ROUTINE Care 06/16/20 21:07 Ordered Dietary Supplements [RC] BIDMEALS Care 06/16/20 21:10 Ordered Height and Weight [RC] UPON Care 06/16/20 21:05 Ordered Intake and Output [RC] QSHIFT Care 06/16/20 21:06 Ordered May Shower [RC] ASDIRECTED Care 06/16/20 21:05 Ordered Oxygen Therapy [RC] PRN Care 06/16/20 21:05 Ordered Up ad Hanny [RC] ASDIRECTED Care 06/16/20 21:05 Ordered VTE/DVT Education [RC] PER UNIT ROUTINE Care 06/16/20 21:05 Ordered Vital Signs [RC] Q4H Care 06/16/20 21:05 Ordered Clear Liquid Diet [DIET] Diet 06/17/20 Breakfast Ordered BASIC METABOLIC PANEL,BMP [CHEM] AM Lab 06/17/20 05:11 Ordered BASIC METABOLIC PANEL,BMP [CHEM] AM Lab 06/18/20 05:11 Ordered C-REACTIVE PROTEIN [CHEM] AM Lab 06/17/20 05:11 Ordered C-REACTIVE PROTEIN [CHEM] AM Lab 06/18/20 05:11 Ordered CBC WITH AUTO DIFF [HEME] AM Lab 06/17/20 05:11 Ordered CBC WITH AUTO DIFF [HEME] AM Lab 06/18/20 05:11 Ordered Acetaminophen [TylenoL] Med 06/16/20 21:05 Ordered 650 mg PO Q4H PRN HYDROmorphone [Dilaudid] Med 06/16/20 21:05 Ordered 0.5 mg IVPUSH Q4H PRN Ketorolac [Toradol] Med 06/16/20 21:05 Ordered 30 mg IM Q8H PRN Lactated Ringers @ 125 MLS/HR(1,000ml) Med 06/16/20 21:15 Ordered Lactated Ringers [Ringers, Lactated] 1,000 ml IV ASDIRECTED Ondansetron [Zofran] Med 06/16/20 21:05 Ordered 4 mg IV Q6H PRN Promethazine [Phenergan] 12.5 mg Med 06/16/20 21:05 Ordered Sodium Chloride 0.9% [Normal Saline] 100 ml IV Q6H cefTRIAXone [Rocephin] Med 06/17/20 08:00 Ordered 1 gm IVPUSH BID Antiembolic Hose [OM.PC] Per Unit Routine Oth 06/16/20 21:06 Ordered Resuscitation Status Routine Resus Stat 06/16/20 21:05 Ordered Medication Orders Acetaminophen (Tylenol) 650 mg PO Q4H PRN PRN Reason: Pain (Mild 1-3)/fever Ceftriaxone Sodium (Rocephin) 1 gm IVPUSH BID JT Hydromorphone HCl (Dilaudid) 0.5 mg IVPUSH Q4H PRN PRN Reason: Pain (severe 7-10) Promethazine HCl 12.5 mg/ (Sodium Chloride) 100 mls @ 200 mls/hr IV Q6H PRN PRN Reason: Nausea/Vomiting Lactated Ringer's (Ringers, Lactated) 1,000 mls @ 125 mls/hr IV ASDIRECTED [facility] Ketorolac Tromethamine (Toradol) 30 mg IM Q8H PRN PRN Reason: Pain (moderate 4-6) Ondansetron HCl (Zofran) 4 mg IV Q6H PRN PRN Reason: Nausea/Vomiting Assessment/Plan Comment:: Assessment/Plan Admit inpatient under my service will discuss with Dr. Albert in the morning. Pyelonephritis with failed outpatient therapy from the ED. Urine/blood cultures pending. Daily labs. LR 125mls/hr. Zofran Phenergan IV for prn nausea. Ceftriaxone 1 gram IVP bid. Tylenol for fever. Ketorolac and Dilaudid IV for pain prn. Will complete a CT abd/pelvis with contrast to ensure no nephric abscess or necrotizing pyelo with the rather impressive CRP of almost 60. Clear liquid diet at this time. VTE: GENEVA Score 2/Barb 1, low risk no anticoagulation, Ambulation and TEDs Sepsis, lactic normal, clearly an infectious process. Ceftriaxone 1 gram IVP bid. Cultures pending blood/urine. Daily labs with CRP, CBC, BMP and Lactic. - Mortality Measure Prognosis:: Good
[2020-06-16] MEDS ORDERED: Iopamidol 612 MG/ML 100 ML Bottle IVPUSH ONE (22:04)
[2020-06-16] MEDS: Lactated Ringers 1,000 ML IV SCH (22:26)
[2020-06-16] MEDS: cefTRIAXone 1 GM Vial IVPUSH SCH (22:32)
[2020-06-17] MEDS: Lactated Ringers 1,000 ML IV SCH (06:07)
[2020-06-17 06:56] LABS: CHLORIDE,CL 98 mmol/L (98-107); SODIUM,NA 135 mmol/L (136-145)
[2020-06-17 07:03] LABS: ANION GAP 15.2 mmol/L (10-20)
--- NOTE | 2020-06-17 07:52 | CT ---
[id number] CT/CT Abdomen Pelvis W IV EXAM: ABDOMEN AND PELVIS CT WITH CONTRAST INDICATION: Pyelonephritis. Concern for abscess or other complication. COMPARISON: None. DISCUSSION: Wedge-shaped areas of hypoenhancement in the right kidney and perinephric stranding is compatible with the clinical history of pyelonephritis. The left kidney enhances normally. No abscess, calculi or hydronephrosis is identified on either side. There is a small volume of free fluid in the pelvis. Previous cholecystectomy with mild associated intrahepatic duct ectasia. The ovaries are mildly prominent in size and contain multiple small follicles. The pancreas, spleen, adrenal glands, and small bowel are normal in appearance There is a mildly prominent colonic stool volume. The appendix is not definitely identified, but there are no changes to suggest acute appendicitis. The osseous structures are unremarkable. IMPRESSION: 1. Acute right pyelonephritis. No abscess, obstruction or other evident complication. 2. Small volume free fluid in the pelvis. Manuel Ulrich MD 06/17/20 0759 Thank you for allowing us to participate in the care of your patient.
[2020-06-17] MEDS: cefTRIAXone 1 GM Vial IVPUSH SCH (08:10)
[2020-06-17] MEDS ORDERED: HYDROmorphone 0.5 MG/0.5 ML Syringe IVPUSH PRN (09:00)
--- NOTE | 2020-06-17 09:52 | PCM.DCSUM1 ---
Discharge Summary - Hospital Course Free Text/Narrative:: The patient's laboratory evaluation has minimal improvement. She still has an elevated WBC at 16 and a quite elevated CRP. I did complete a CT scan of the abdomen pelvis to ensure that she does not had any emphysematous pyelonephritis or perinephric or nephric abscess which was negative for both. Minimal clinical improvement throughout the night. Her blood and urine cultures are still pending. She has been afebrile. Her vital signs of been stable. She still has minimal urine output. Spite 2 L of hydration in the emergency department and normal saline 125 mils an hour. She was a direct admit for acute inpatient management. This morning she does not want to stay in the hospital any longer she does not have anyone to watch her kids. I had a very extended conversation with the patient that I do not feel that it is appropriate for her to go home as she really has not shown much clinical improvement and I have large concerns for her return to the hospital with failed outpatient management. She has no other options at this time and she wants to leave AMA. She is understanding of the risks to include sepsis septic shock . As well as acute and chronic injury to her kidneys. Is of sound mind and able to make this decision at this time. lithography contact worker also met with the patient and she does not have any other options to assist her with her social issues at this time. Patient does verbally and written signed for leaving AGAINST MEDICAL ADVICE. We will discharge her home AMA with very specific discharge instructions. We will keep her on Keflex 500 mg p.o. 4 times daily for the next 12 days. Zofran and Phenergan for nausea. It is very important for her to make sure that she is resting and taking care of herself she also needs to stay adequately hydrated. Also give her some hydrocodone for pain. If at any time she is unable to keep her medications down she is unable to control her fever she has decreased urinary output or any other new or worsening symptoms she is to recheck immediately in the emergency department. I will have her follow-up with her primary care provider tomorrow for recheck as I feel that she should not be discharged as she has not shown much clinical improvement. Vital signs are stable at this time although her laboratory evaluation has little to no improvement. Awaiting for urine blood cultures to ensure appropriate antibiotic therapy. Patient clearly understands the risk of leaving AMA and still elects to do so. HPI Initial Comments: Patient is a direct admit from home with concerns of worsening pyelonephritis. This patient was seen in the emergency department earlier today with complaints of dysuria and urinary frequency for about the past 7 days. For the past 2 days she has developed pain in her right flank fever chills generalized malaise and fatigue nausea without vomiting. She was initially seen in the clinic and sent to the emergency department for further evaluation. She was diagnosed with acute pyelonephritis with a quite elevated WBC of 17,000 and a CRP of almost 60. She had blood cultures x2 and a urinary culture pending. She was given 2 L of LR in the emergency department as well as ceftriaxone 2 g IV push. She was given pain and nausea medication and she felt quite a bit better. With the concerns of the CRP and the white count I did offer admission at that time but she did not feel it was warranted and wanted to go home. She was able to drink fluids in the ED and tolerate them. I discussed at length with her the importance if she is unable to keep fluids down or her antibiotic she is to return. Returns a couple of hours after being discharged home. She has vomited multiple times at home. She has recurrence of her fever. The rest of her symptoms of malaise fatigue continue. As she clearly has failed outpatient management for acute pyelonephritis we will admit her into the hospital under acute care services for further care and management. - Discharge Data Discharge Date: 06/17/20 Discharge Disposition: Against Medical Advice 07 Condition: Good - Referral to Home Health Primary Care Physician: PCP None - Discharge Diagnosis/Problem(s) (1) Pyelonephritis, acute SNOMED Code(s): 95845833 ICD Code: N10 - ACUTE PYELONEPHRITIS Status: Acute - Patient Instructions Notify Provider of: Fever, Increased Pain Other/Special Instructions: You have decided to leave against medical advice with your understanding that you get worse and become more ill and end up in the ICU if not improving. Home rest as much as possible. Drink plenty of water. If you are not voiding urine every 2 hrs you are not drinking enough fluids. Diet as tolerated. Things that are light and easy to digest. Zofran 1 tablet every 6 hrs as needed for nausea and vomiting. RX to the pharmacy last night. If nausea vomiting continue. Phenergan 1 tablet every 6 hrs as needed for nausea or vomiting. Caution sedation and drowsiness. RX sent today to [facility] pharmacy. Tylenol and or Ibuprofen as needed for pain fever discomfort. Cephalexin 1 tablet 4 times a day until gone. Rx to the pharmacy last night. Recheck with PCP on sunday. If pain not controlled with above. Wolsey 1 tablet every 6 hrs with food as needed for pain. Caution sedation. Do not take with Tylenol as this medication has tylenol in it as well. Return to the ED if uncontrolled fever, unable to keep your anti-biotics down uncontrolled fever or any new or worsening symptoms. - Discharge Plan *PRESCRIPTION DRUG MONITORING PROGRAM REVIEWED*: Not Applicable *COPY OF PRESCRIPTION DRUG MONITORING REPORT IN PATIENT JA: Not Applicable Prescriptions/Med Rec: cephALEXin [Keflex] 500 mg PO QID #20 capsule Promethazine [Phenergan] 25 mg PO Q6H PRN #10 tab PRN Reason: Nausea/Vomiting Home Medications: Home Meds Ondansetron [Ondansetron ODT] 4 mg PO Q6H PRN #12 tab.rapdis 06/16/20 [Rx] cephALEXin [Cephalexin] 500 mg PO QID #28 tablet 06/16/20 [Rx] Promethazine [Phenergan] 25 mg PO Q6H PRN #10 tab 06/17/20 [Rx] cephALEXin [Keflex] 500 mg PO QID #20 capsule 06/17/20 [Rx] Patient Handouts: Pyelonephritis, Adult, [id number] - Discharge Summary/Plan Comment DC Time >30 min.: Yes - General Info Date of Service: 06/17/20 Admission Dx/Problem (Free Text: Admission Diagnosis/Problem Admission Diagnosis/Problem Pyelonephritis Subjective Update: The patient is rested well throughout the night. She feels a little bit better than when she came in. Her nausea has improved. She has little of appetite. No fever no chills. She still is eating very little. I was summoned by the nurse to come and see the patient as she wants to leave AMA as she does not have anyone to watch her for children at home. She really does not feel well enough for her to go home but she absolutely has to leave because she does not have anyone to watch her children. She is very anxious and confusion because her and her boyfriend got in a fight and he was to walk the kids although know he is refusing. She knows she is not well enough to stay in the hospital although someone has to take care of her children. Functional Status: Reports: Pain Controlled, Tolerating Diet, Urinating (improving) - Review of Systems General: Reports: Fever, Malaise HEENT: Reports: No Symptoms Pulmonary: Reports: No Symptoms Cardiovascular: Reports: No Symptoms Gastrointestinal: Reports: No Symptoms Genitourinary: Reports: Dysuria, Burning, Pain, Flank Pain (Right) Musculoskeletal: Reports: No Symptoms Skin: Reports: No Symptoms Neurological: Reports: No Symptoms Psychiatric: Reports: No Symptoms - Patient Data Vitals - Most Recent: Last Vital Signs Temp 98.7 F 06/17/20 06:00 Pulse 74 06/17/20 06:00 Resp 16 06/17/20 06:00 BP 102/65 06/17/20 06:00 Pulse Ox 98 06/17/20 06:00 Weight - Most Recent: 123 lb I&O - Last 24 hours: Intake & Output 06/16/20 06/17/20 06/17/20 22:59 06:59 14:59 Intake Total 1158 Output Total 300 300 Balance 858 -300 Lab Results - Last 24 hrs: Laboratory Results - last 24 hr 06/17/20 06/17/20 Range/Units 06:13 06:13 WBC 16.0 H (4.0-10.0) x10^3/uL RBC 3.71 L (4.00-5.50) x10^6/uL Hgb 11.7 L D (12.0-16.0) g/dL Hct 33.8 (33.0-47.0) % MCV 91.1 (78.0-93.0) fL MCH 31.5 (26.0-32.0) pg MCHC 34.6 (32.0-36.0) g/dL RDW Coeff of Katelyn 13.5 (10.0-15.0) % Plt Count 82 L (130-400) x10^3/uL Neut % (Auto) 84.7 H (50.0-80.0) % Lymph % (Auto) 3.1 L (25.0-50.0) % [place] % (Auto) 11.7 H (2.0-11.0) % Eos % (Auto) 0.4 (0.0-4.0) % Baso % (Auto) 0.1 L (0.2-1.2) % Sodium 135 L (136-145) mmol/L Potassium 3.2 L (3.5-5.1) mmol/L Chloride 98 (98-107) mmol/L Carbon Dioxide 25 (21-32) mmol/L Anion Gap 15.2 (10-20) mmol/L BUN 10 (7-18) mg/dL Creatinine 1.0 (0.55-1.02) mg/dL Est Cr Clr Drug Dosing 75.75 mL/min Estimated GFR (MDRD) > 60 Glucose 92 (74-106) mg/dL Calcium 7.7 L (8.5-10.1) mg/dL C-Reactive Protein 58.3 H (<=0.9) mg/dL Med Orders - Current: Current Medications Acetaminophen (Tylenol) 650 mg PO Q4H PRN PRN Reason: Pain (Mild 1-3)/fever Ceftriaxone Sodium (Rocephin) 1 gm IVPUSH BID [facility] Last Admin: 06/17/20 08:10 Dose: 1 gm Documented by: Hydromorphone HCl (Dilaudid) 0.5 mg IVPUSH Q4H PRN PRN Reason: Pain (severe 7-10) Promethazine HCl 12.5 mg/ (Sodium Chloride) 100 mls @ 200 mls/hr IV Q6H PRN PRN Reason: Nausea/Vomiting Lactated Ringer's (Ringers, Lactated) 1,000 mls @ 125 mls/hr IV ASDIRECTED [facility] Last Admin: 06/17/20 06:07 Dose: 125 mls/hr Documented by: Ketorolac Tromethamine (Toradol) 30 mg IM Q8H PRN PRN Reason: Pain (moderate 4-6) Ondansetron HCl (Zofran) 4 mg IV Q6H PRN PRN Reason: Nausea/Vomiting Last Admin: 06/16/20 22:27 Dose: 4 mg Documented by: Discontinued Medications Hydromorphone HCl (Dilaudid) 0.5 mg IVPUSH Q4H PRN PRN Reason: Pain (severe 7-10) Last Admin: 06/16/20 22:40 Dose: 0.5 mg Documented by: Iopamidol ([id number] (61%)) 100 ml IVPUSH ONETIME ONE Stop: 06/16/20 22:05 Last Admin: 06/16/20 22:32 Dose: 100 ml Documented by: - Exam General: Reports: Alert, Oriented HEENT: Reports: Pupils Equal Neck: Reports: Supple Lungs: Reports: Clear to Auscultation, Normal Respiratory Effort Cardiovascular: Reports: Regular Rate, Regular Rhythm GI/Abdominal Exam: Normal Bowel Sounds, Non-Tender (Female) Exam: Deferred Back Exam: Reports: Full Range of Motion, CVA Tenderness (R). Denies: CVA Tenderness (L) Extremities: Normal Inspection, Normal Range of Motion, No Pedal Edema, Normal Capillary Refill Skin: Reports: Warm, Dry, Intact Neurological: Reports: No New Focal Deficit Psy/Mental Status: Reports: Anxious (SHe is quite anxious and tearful with her current social situation with her boyfriend. )
[2020-06-17 10:27] VITALS: BP 119/72; PULSE 86
[2020-06-17] MEDS ORDERED: Ondansetron 4 MG Tab.DIS PO PRN (11:12)
[2020-06-17] MEDS ORDERED: Cephalexin 500 MG Cap PO SCH (11:15)
== END 2020-06-17 11:00 | disposition left against medical advice (07) | DRG 690 ==
LOC: VM.MS 20:48
PROVIDERS: ADMIT Nurse Practitioner Family; ATTEND Nurse Practitioner Family
DX: N10 Acute pyelonephritis (principal); Z88.5 Allergy status to narcotic agent; Z90.49 Acquired absence of other specified parts of digestive tract
CPT/HCPCS: 36415; 74177; 80048; 85025; 86140; J0696; J1170; J2405; J7120; Q9967

== ENCOUNTER 2020-06-17 20:27 | Emergency (ER) | payer MEDICAID ==
--- NOTE | 2020-06-17 20:59 | EDM.PDOC ---
ED HPI GENERAL MEDICAL PROBLEM - General Stated Complaint: fever Time Seen by Provider: 06/17/20 20:53 Source of Information: Reports: Patient History Limitations: Reports: No Limitations - History of Present Illness INITIAL COMMENTS - FREE TEXT/NARRATIVE: Patient comes emergency department today for complaints of a fever and flank pain. This is the third time that have seen this patient in 24 hours. I had admitted her into the hospital last night under inpatient care for acute pyelonephritis. She left AMA this morning as she had no one to take care of her kids she did not feel much better although she did not have a choice and understood the risks. She has had a couple bottles of Gatorade today and only voided twice since she has left. She has had a little bit of nausea but no vomiting. This evening she spiked a fever up to 102.4 at home. She took ibuprofen prior to coming into the emergency department. She has no other shortness of breath cough or congestion. No sore throat. She still has dysuria. She does feel overall better than when she left AMA from the hospital this morning just got concerned when she got a fever again tonight. 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 NO COVID exposure or COVID symptoms. - Related Data Allergies Allergy/AdvReac Type Severity Reaction Status Date / Time codeine Allergy Hives Verified 06/16/20 14:42 Home Meds: Home Meds Ondansetron [Ondansetron ODT] 4 mg PO Q6H PRN #12 tab.rapdis 06/16/20 [Rx] cephALEXin [Cephalexin] 500 mg PO QID #28 tablet 06/16/20 [Rx] Potassium Chloride 20 meq PO DAILY #5 tablet.er 06/17/20 [Rx] Promethazine [Phenergan] 25 mg PO Q6H PRN #10 tab 06/17/20 [Rx] cephALEXin [Keflex] 500 mg PO QID #20 capsule 06/17/20 [Rx] Past Medical History - Past Health History Medical/Surgical History: Denies Medical/Surgical History HEENT History: Reports: None Cardiovascular History: Reports: None Respiratory History: Reports: None Gastrointestinal History: Reports: None Genitourinary History: Reports: None IMPACT HAMMER OPERATOR 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: Reports: None Other IMPACT HAMMER OPERATOR History: vaginal delivery one week ago Musculoskeletal History: Reports: None Neurological History: Reports: None Psychiatric History: Reports: None Endocrine/Metabolic History: Reports: None Immunologic History: Reports: None - Past Surgical History GI Surgical History: Reports: Cholecystectomy, Other (See Below) Social & Family History - Family History Family Medical History: Noncontributory - Caffeine Use Caffeine Use: Reports: Soda - Sexual History Sexual History: Reports: Sexually Active, Single Partner ED ROS GENERAL - Review of Systems Review Of Systems: Comprehensive ROS is negative, except as noted in HPI. ED EXAM, RENAL/ - Physical Exam Exam: See Below Exam Limited By: No Limitations General Appearance: Alert, WD/WN, No Apparent Distress Respiratory/Chest: No Respiratory Distress, Lungs Clear, Chest Non-Tender Cardiovascular: Normal Peripheral Pulses, Regular Rate, Rhythm, No Edema GI/Abdominal: Normal Bowel Sounds, Soft, Non-Tender (Female) Exam: Deferred Rectal (Female) Exam: Deferred Back Exam: Full Range of Motion, CVA Tenderness (R). No: CVA Tenderness (L) Extremities: Normal Inspection, Normal Range of Motion, Non-Tender, Normal Capillary Refill Neurological: Alert, Oriented, Normal Cognition, No Motor/Sensory Deficits Psychiatric: Normal Affect, Normal Mood Skin Exam: Intact, Normal Color, No Rash, Diaphoretic, Increased Warmth Lymphatic: No Adenopathy Course - Orders/Labs/Meds Labs: Laboratory Tests 06/17/20 06/17/20 Range/Units 21:05 21:05 WBC 9.8 (4.0-10.0) x10^3/uL RBC 4.05 (4.00-5.50) x10^6/uL Hgb 12.8 (12.0-16.0) g/dL Hct 36.7 (33.0-47.0) % MCV 90.6 (78.0-93.0) fL MCH 31.6 (26.0-32.0) pg MCHC 34.9 (32.0-36.0) g/dL RDW Coeff of Katelyn 13.3 (10.0-15.0) % Plt Count 90 L (130-400) x10^3/uL Neut % (Auto) 79.7 (50.0-80.0) % Lymph % (Auto) 5.6 L (25.0-50.0) % Barren % (Auto) 13.0 H (2.0-11.0) % Eos % (Auto) 1.6 (0.0-4.0) % Baso % (Auto) 0.1 L (0.2-1.2) % Sodium 137 (136-145) mmol/L Potassium 3.1 L (3.5-5.1) mmol/L Chloride 97 L (98-107) mmol/L Carbon Dioxide 30 (21-32) mmol/L Anion Gap 13.1 (10-20) mmol/L BUN 9 (7-18) mg/dL Creatinine 1.0 (0.55-1.02) mg/dL Est Cr Clr Drug Dosing TNP Estimated GFR (MDRD) > 60 Glucose 91 (74-106) mg/dL Calcium 8.6 (8.5-10.1) mg/dL C-Reactive Protein 30.2 H (<=0.9) mg/dL Meds: Medications Discontinued Medications Generic Name Dose Route Start Last Admin Trade Name Freq PRN Reason Stop Dose Admin Potassium Chloride 40 meq 06/17/20 21:38 Potassium Chloride Solution PO 06/17/20 21:39 ONETIME ONE - Re-Assessments/Exams Free Text/Narrative Re-Assessment/Exam: 06/17/20 22:41 This patient's labs have quite a bit of improvement of the white blood cell count down from 16 this morning down to 9. Her CRP is about half of what it was as well. Her labs are otherwise unremarkable. We will continue with the current therapy and followed by culture guidance. Her potassium is a little low today therefore I will give her 40 of potassium orally in the emergency department and give her some oral supplementation at home as well over the next couple of days to have this rechecked in the clinic on Sunday. She is comf ortable with this plan and her questions are answered. Departure - Departure Time of Disposition: 21:25 Disposition: Home, Self-Care 01 Clinical Impression: Pyelonephritis, acute, Hypokalemia - Discharge Information Prescriptions: Potassium Chloride 20 meq PO DAILY #5 tablet.er Instructions: Pyelonephritis, Adult, [id number], Potassium Content of Foods Additional Instructions: Tylenol and or Ibuprofen as needed for pain fever discomfort. MAKE SURE AND PUSH FLUIDS MUCH possible. If your not urinating every few hours your not drinking enough fluids. Continue with the Cephalexin, Zofran, Phenergan and [place] as previous. MAKE SURE AND FINISH ALL 12 days of the antibiotics. Start taking potassium tab one tab daily until follow up on sunday with PCP. Recheck with PCP on sunday. Return to the ED if new or worsening symptoms. If fever not controlled with Tylenol and or Ibuprofen. Unable to keep your anti-biotics down or urinary output not improving.
[2020-06-17 21:29] LABS: CHLORIDE,CL 97 mmol/L (98-107); SODIUM,NA 137 mmol/L (136-145)
[2020-06-17 21:37] LABS: ANION GAP 13.1 mmol/L (10-20)
[2020-06-17] MEDS ORDERED: Potassium Chloride 10% 20 MEQ/15 ML Soln 15 ML UD Cup PO ONE (21:38)
[2020-06-18 05:06] VITALS: BP 126/63; PULSE 85
== END 2020-06-17 22:00 | disposition home or self-care (01) ==
LOC: VM.ED 20:27
DX: O90.89 Other complications of the puerperium, not elsewhere classified (principal); N10 Acute pyelonephritis; O99.285 Endocrine, nutritional and metabolic diseases complicating the puerperium; E87.6 Hypokalemia; Z88.5 Allergy status to narcotic agent
CPT/HCPCS: 36415; 80048; 85025; 86140; 99284; A9270-GY

== ENCOUNTER 2020-08-31 13:42 | Emergency (ER) | payer MEDICAID ==
--- NOTE | 2020-08-31 13:58 | EDM.PDOC ---
ED HPI GENERAL MEDICAL PROBLEM - General Time Seen by Provider: 08/31/20 13:57 Source of Information: Reports: Patient, RN, RN Notes Reviewed History Limitations: Reports: No Limitations - History of Present Illness INITIAL COMMENTS - FREE TEXT/NARRATIVE: Patient presents to ER with complaint of a "blood clot". Patient states her boyfriend gave her hickey on the left side of her neck yesterday, and she felt there was a lump in the middle of it. Patient states her mother told her when she was younger never to get a Hickey because she would have a higher risk of getting a blood clot. Patient states she also felt that she had a small lump on the left anterior chest, tender to touch, and bruising. Upon exam there is no bruising, vessels visible through the skin, and the lump is a rib. Patient is very anxious and crying. Patient states she was very nervous. Patient states no history of blood clots in herself, or her family that she is aware of. Patient states her father did have a stroke, but had a hemorrhage at some point, unsure if his stroke was hemorrhagic or ischemic. Patient denies any known blood clotting disorders. Patient denies chest pains, shortness of breath, or any further complaints of. States she does have a history of anxiety. Onset: Today, Sudden Chest Pain Score (Numeric/FACES): 4 - Related Data Allergies Allergy/AdvReac Type Severity Reaction Status Date / Time codeine Allergy Hives Verified 08/31/20 13:58 Home Meds: Home Meds . [No Known Home Meds] 08/31/20 [History] Past Medical History - Past Health History Medical/Surgical History: Denies Medical/Surgical History HEENT History: Reports: None Cardiovascular History: Reports: None Respiratory History: Reports: None Gastrointestinal History: Reports: None Genitourinary History: Reports: None Other Genitourinary History: Pylonephritis PHYSICAL INTEGRATION PRACTITIONER History: Reports: None Other PHYSICAL INTEGRATION PRACTITIONER History: vaginal delivery one week ago Musculoskeletal History: Reports: None Neurological History: Reports: None Psychiatric History: Reports: None Endocrine/Metabolic History: Reports: None Immunologic History: Reports: None - Past Surgical History GI Surgical History: Reports: Cholecystectomy, Other (See Below) Social & Family History - Family History Family Medical History: Noncontributory - Caffeine Use Caffeine Use: Reports: Soda - Sexual History Sexual History: Reports: Sexually Active, Single Partner ED ROS GENERAL - Review of Systems Review Of Systems: Comprehensive ROS is negative, except as noted in HPI. ED EXAM, GENERAL - Physical Exam Exam: See Below Exam Limited By: No Limitations General Appearance: Alert, WD/WN, No Apparent Distress, Anxious Eye Exam: Bilateral Eye: EOMI, Normal Inspection Ears: Normal External Exam, Hearing Grossly Normal Nose: Normal Inspection Throat/Mouth: Normal Inspection, Normal Voice, No Airway Compromise Head: Atraumatic, Normocephalic Neck: Normal Inspection, Supple, Non-Tender, Full Range of Motion Respiratory/Chest: No Respiratory Distress, Lungs Clear, Normal Breath Sounds, No Accessory Muscle Use, Chest Non-Tender Cardiovascular: Normal Peripheral Pulses, Regular Rate, Rhythm, No Edema, No Gallop, No JVD, No Murmur, No Rub Peripheral Pulses: 2+: Radial (L), Radial (R) GI/Abdominal: Normal Bowel Sounds, Soft, Non-Tender (Female) Exam: Deferred Rectal (Female) Exam: Deferred Back Exam: Normal Inspection, Full Range of Motion, NT Extremities: Normal Inspection, Normal Range of Motion, Non-Tender, Normal Capillary Refill, No Pedal Edema Neurological: Alert, Oriented, CN II-XII Intact, Normal Cognition, Normal Gait, Normal Reflexes, No Motor/Sensory Deficits Psychiatric: Normal Affect, Normal Mood, Anxious Skin Exam: Warm, Dry, Intact, Normal Color, No Rash, Petechiae (hickey to the left anterior neck) Lymphatic: No Adenopathy Course - Vital Signs Last Recorded V/S: Last Vital Signs Temp 98.1 F 08/31/20 13:45 Pulse 105 H 08/31/20 13:45 Resp 16 08/31/20 13:45 BP 129/77 08/31/20 13:45 Pulse Ox 97 08/31/20 13:45 Departure - Departure Time of Disposition: 14:10 Disposition: Home, Self-Care 01 Condition: Good Clinical Impression: Physically well but worried - Discharge Information *PRESCRIPTION DRUG MONITORING PROGRAM REVIEWED*: No *COPY OF PRESCRIPTION DRUG MONITORING REPORT IN PATIENT JA: No Referrals: Shanon Ahmadi PA-C [Primary Care Provider] - Forms: ED Department Discharge Sepsis Event Note (ED) - Focused Exam Vital Signs: Vital Signs Temp Pulse Resp BP Pulse Ox 08/31/20 13:45 98.1 F 105 H 16 129/77 97
[2020-08-31 14:05] VITALS: BP 129/77; PULSE 105
== END 2020-08-31 14:17 | disposition home or self-care (01) ==
LOC: VM.ED 13:42
DX: Z71.1 Person with feared health complaint in whom no diagnosis is made (principal); Z88.5 Allergy status to narcotic agent
CPT/HCPCS: 99282; 99283

== ENCOUNTER 2021-05-22 11:07 | Emergency (ER) | payer MEDICAID ==
[2021-05-22] MEDS ORDERED: cefTRIAXone 1 GM, Lidocaine 1% 2.1 ML IM ONE ×2 (11:16)
--- NOTE | 2021-05-22 11:24 | EDM.PDOC ---
ED HPI GENERAL MEDICAL PROBLEM - General Chief Complaint: ENT Problem Stated Complaint: SORE THROAT Time Seen by Provider: 05/22/21 11:07 Source of Information: Reports: Patient History Limitations: Reports: No Limitations - History of Present Illness INITIAL COMMENTS - FREE TEXT/NARRATIVE: Patient comes into the emergency department with complaints of sore throat. Patient states that she has had a sore throat now for approximately 3 days and it progressively is getting worse. Patient states it feels like razor blade sensation in the back of her throat. She states that she has difficulty swallowing, pus pockets are noted, tongue is a different color, and foul smell from the back of her throat/mouth. Patient denies any chest pain, SOB, fever, nausea, vomiting, cough, headache. Patient states she has been relatively healthy and has no other major concerns or complaints. Onset: Sudden - Related Data Allergies Allergy/AdvReac Type Severity Reaction Status Date / Time codeine Allergy Hives Verified 08/31/20 13:58 Home Meds: Home Meds Amoxicillin 875 mg PO BID 10 Days #20 tablet 05/22/21 [Rx] Past Medical History - Past Health History Medical/Surgical History: Denies Medical/Surgical History HEENT History: Reports: None Cardiovascular History: Reports: None Respiratory History: Reports: None Gastrointestinal History: Reports: None Genitourinary History: Reports: None Other Genitourinary History: Pylonephritis SHIPPER AND RECEIVING History: Reports: None Other SHIPPER AND RECEIVING History: vaginal delivery one week ago Musculoskeletal History: Reports: None Neurological History: Reports: None Psychiatric History: Reports: None Endocrine/Metabolic History: Reports: None Immunologic History: Reports: None - Past Surgical History GI Surgical History: Reports: Cholecystectomy, Other (See Below) Social & Family History - Family History Family Medical History: No Pertinent Family History - Caffeine Use Caffeine Use: Reports: Soda - Sexual History Sexual History: Reports: Sexually Active, Single Partner ED ROS GENERAL - Review of Systems Review Of Systems: Comprehensive ROS is negative, except as noted in HPI. Constitutional: Reports: No Symptoms HEENT: Reports: Throat Pain Respiratory: Reports: No Symptoms Cardiovascular: Reports: No Symptoms Endocrine: Reports: No Symptoms GI/Abdominal: Reports: No Symptoms : Reports: No Symptoms Musculoskeletal: Reports: No Symptoms Skin: Reports: No Symptoms Neurological: Reports: No Symptoms Psychiatric: Reports: No Symptoms Hematologic/Lymphatic: Reports: No Symptoms Immunologic: Reports: No Symptoms ED EXAM, GENERAL - Physical Exam Exam: See Below Exam Limited By: No Limitations General Appearance: Alert, WD/WN, No Apparent Distress Eye Exam: Bilateral Eye: EOMI, PERRL Ears: Normal External Exam, Normal Canal, Hearing Grossly Normal, Normal TMs Ear Exam: Bilateral Ear: Auricle Normal, Canal Normal, TM normal Nose: Normal Inspection, Normal Mucosa, No Blood Throat/Mouth: Other Head: Atraumatic, Normocephalic, Other (tonsil 3+, redness noted, foul smell, pus pockets, and patechia on the tongue ) Neck: Lymphadenopathy (L), Lymphadenopathy (R) Respiratory/Chest: No Respiratory Distress, No Accessory Muscle Use, Chest Non- Tender Cardiovascular: Normal Peripheral Pulses, Regular Rate, Rhythm, No Edema Extremities: Normal Inspection, Non-Tender Neurological: Alert, Oriented, Normal Gait Psychiatric: Normal Affect, Normal Mood Skin Exam: Warm, Dry, Intact Course - Orders/Labs/Meds Meds: Medications Discontinued Medications Generic Name Dose Route Start Last Admin Trade Name Meghan PRN Reason Stop Dose Admin Ceftriaxone Sodium 1 gm/ 0 gm 05/22/21 11:16 Lidocaine HCl 2.1 ml IM 05/22/21 11:17 ONETIME ONE Departure - Departure Time of Disposition: 11:25 Disposition: Home, Self-Care 01 Condition: Good Clinical Impression: Acute bacterial tonsillitis, Acute bacterial pharyngitis - Discharge Information *PRESCRIPTION DRUG MONITORING PROGRAM REVIEWED*: Not Applicable *COPY OF PRESCRIPTION DRUG MONITORING REPORT IN PATIENT JA: Not Applicable Prescriptions: Amoxicillin 875 mg PO BID 10 Days #20 tablet Instructions: Tonsillitis, [id number]-Ylli, Pharyngitis, Ceftriaxone Injection Forms: ED Department Discharge Additional Instructions: 1. rest 2. increase your water intake 3. Take all antibiotics as prescribed even if feeling better 4. Take a probiotic while on antibiotics to help promote healthy GI motility 5. Activity and diet as tolerated 6. Can use Ibuprofen and tylenol for any fever or discomfort 7. Follow up with your PCP or return if symptoms progress or worsen 8. Education provided to you regarding your illness, probiotics, antibiotic prescribed 9. Call with any questions or concerns - Assessment/Plan Assessment:: 1. tonsillitis 2. Pharyngitis Plan: 1. Rocephin IM in clinic today 2. Script sent to the pharmacy to be filled tomorrow 3. Patient and nursing staff was updated regarding the plan of care 4. Education provided the patient regarding activity, diet, rest, over-the-c ounter medication modalities, and follow-up care was provided 5. Patient and family are agreeable to the above plan of care 6. All questions and concerns were addressed with the patient and family prior to discharge
[2021-05-22 12:07] VITALS: BP 111/75; PULSE 94
== END 2021-05-22 11:55 | disposition home or self-care (01) ==
LOC: VM.ED 11:07
DX: J03.80 Acute tonsillitis due to other specified organisms (principal); B96.89 Other specified bacterial agents as the cause of diseases classified elsewhere; Z88.5 Allergy status to narcotic agent
CPT/HCPCS: 96372; 99283; J0696

== ENCOUNTER 2022-01-31 21:18 | Emergency (ER) | payer MEDICAID ==
[2022-01-31] MEDS ORDERED: Promethazine 25 MG Tab PO STA (22:14)
[2022-01-31] MEDS ORDERED: Naproxen 500 MG Tab PO ONE (22:15)
[2022-02-01 01:38] VITALS: BP 113/67; PULSE 88
== END 2022-01-31 22:40 | disposition home or self-care (01) ==
LOC: VM.ED 21:18
DX: N93.9 Abnormal uterine and vaginal bleeding, unspecified (principal); R11.0 Nausea; Z88.8 Allergy status to other drugs, medicaments and biological substances
CPT/HCPCS: 99283; 99284; A9270-GY

== ENCOUNTER 2022-06-24 09:48 | Emergency (ER) | payer MEDICAID ==
[2022-06-24] MEDS ORDERED: Sodium Chloride 0.9% 10 ML Syringe FLUSH PRN (10:05)
[2022-06-24] MEDS ORDERED: Promethazine 12.5 MG in Sodium Chloride 0.9% 100 ML IV ONE (10:07)
[2022-06-24] MEDS ORDERED: Morphine 10 MG/ML SDV IVPUSH ONE (10:07)
[2022-06-24] MEDS ORDERED: Sodium Chloride 0.9% 1,000 ML IV SCH (10:15)
[2022-06-24 10:54] LABS: CHLORIDE,CL 101 mmol/L (98-107); SODIUM,NA 140 mmol/L (136-145)
[2022-06-24 10:56] LABS: ANION GAP 16.7 mmol/L (5-15); ESTIMATED GFR 104 mL/min (>=60)
[2022-06-24] MEDS ORDERED: Iopamidol 612 MG/ML 100 ML Bottle IVPUSH ONE (11:59)
[2022-06-24 13:23] VITALS: BP 109/56; PULSE 55
[2022-06-24] MEDS ORDERED: Naproxen 500 MG Tab PO ONE (13:30)
[2022-06-24] MEDS: Magnesium Citrate Solution 296 ML Bottle PO ONE (13:42)
== END 2022-06-24 13:55 | disposition home or self-care (01) ==
LOC: VM.ED 09:48
DX: N83.8 Other noninflammatory disorders of ovary, fallopian tube and broad ligament (principal); Z88.5 Allergy status to narcotic agent
CPT/HCPCS: 74177; 80053; 83605; 85025; 96361; 96365; 96375; 99284; 99284-25; A9270-GY; J2270; J2550; J3490; J7030; Q9967